=== PATIENT | female | born 2000 | race Two or more races ===

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

== ENCOUNTER 2023-04-05 11:49 | Emergency (ER) | payer BC, MEDICAID ==
[~2023-04-05] VITALS: Ht 157.5 cm; Wt 54.5 kg
[2023-04-05 14:26] LABS: Urine Bacteria FEW /hpf (None Seen); Urine Blood Negative /uL (Negative); Urine Mucus FEW (None Seen); Urine Specific Gravity 1.026 (1.001-1.035); Urine WBC 44 /hpf (0 - 5)
[2023-04-05 15:02] LABS: Alcohol, Urine < 3.0 mg/dL (0-10); Amphetamine Screen, Urine NEGATIVE (NEGATIVE); Barbiturate Scree,Urine NEGATIVE (NEGATIVE); Benzodiazephine Screen, Urine NEGATIVE (NEGATIVE); Cannabinoid Screen, Urine POSITIVE (NEGATIVE); Cocaine Screen, Urine NEGATIVE (NEGATIVE)
[2023-04-05 15:09] LABS: Opiate Scree,Urine NEGATIVE (NEGATIVE); Phencyclidine Screen, Urine NEGATIVE (NEGATIVE)
[2023-04-05 16:24] VITALS: BP 104/55; PULSE 80; RESP 16; TEMP 98; O2SAT 95
[2023-04-05] MEDS ORDERED: CLOTCRE3 EX (16:47)
[2023-04-05] MEDS ORDERED: METR375C PO (16:47)
[2023-04-05] MEDS ORDERED: FLUC150T38 PO (16:47)
[2023-04-05] MEDS ORDERED: NITR-52 PO (16:50)
== END 2023-04-05 16:53 | disposition home or self-care (01) ==
LOC: ER 11:49
DX: N76.0 Acute vaginitis (principal); Z79.899 Other long term (current) drug therapy
CPT/HCPCS: 80307; 81001; 81025

== ENCOUNTER 2023-07-09 10:31 | Emergency (ER) | payer BC, MEDICAID ==
[~2023-07-09] VITALS: Ht 157.5 cm; Wt 52.3 kg
[~2023-07-09 10:31] MED LIST: CLOTCRE3 EX; FLUC150T38 PO; METR375C PO; NITR-52 PO
[2023-07-09 14:12] LABS: Urine Bacteria FEW /hpf (None Seen); Urine Blood Negative /uL (Negative); Urine Clarity HAZY (Clear); Urine Hyphae Yeast PRESENT /hpf; Urine Protein, UAD Negative (Negative); Urine Specific Gravity 1.009 (1.001-1.035); Urine Urobilinogen Normal (Negative); Urine WBC 174 /hpf (0 - 5); Urine pH 6.5 (5.0-8.0)
[2023-07-09 14:20] VITALS: BP 113/64; PULSE 77; RESP 16; TEMP 98.4; O2SAT 98
[2023-07-09 14:22] LABS: Urine Color Yellow (Yellow)
[2023-07-09] MEDS ORDERED: cefTRIAXone SOD 1,000 MG VL IM ONE (15:15)
[2023-07-09] MEDS ORDERED: KETOROLAC TROMETH 30 MG/ML 1ML VIAL IM ONE (15:15)
[2023-07-09] MEDS ORDERED: NITR-87 PO (15:24)
== END 2023-07-09 15:45 | disposition home or self-care (01) ==
LOC: ER 10:31
DX: N39.0 Urinary tract infection, site not specified (principal)
CPT/HCPCS: 81001; 96372; 99284; J0696; J1885

== ENCOUNTER 2024-04-03 21:55 | Emergency (ER) | payer BC, MEDICAID ==
[~2024-04-03] VITALS: Ht 157.5 cm; Wt 49.2 kg
[~2024-04-03 21:55] MED LIST changes: +NITR-87 PO
[2024-04-04] MEDS: MORPHINE SULFATE 4 MG/ML SYR/VIAL IM ONE (00:28)
[2024-04-04] MEDS: ONDANSETRON ODT 4 MG TAB PO ONE (00:29)
[2024-04-04 01:51] VITALS: BP 105/52; PULSE 72; RESP 16; O2SAT 94
== END 2024-04-04 01:18 | disposition home or self-care (01) ==
LOC: ER 21:55
DX: T63.311A Toxic effect of venom of black widow spider, accidental (unintentional), initial encounter (principal); Z79.899 Other long term (current) drug therapy; Y92.89 Other specified places as the place of occurrence of the external cause
CPT/HCPCS: 96372; 99283; J2270; Q0162

== ENCOUNTER 2024-04-30 16:27 | Emergency (ER) | payer MEDICAID ==
[~2024-04-30] VITALS: Ht 157.5 cm; Wt 48.1 kg
[2024-04-30 18:34] LABS: Urine Bacteria MANY /hpf (None Seen); Urine Blood Negative /uL (Negative); Urine Clarity Turbid (Clear); Urine Color Light-Orange (Yellow); Urine Mucus FEW (None Seen); Urine Protein, UAD TRACE (Negative); Urine Specific Gravity 1.021 (1.001-1.035); Urine Urobilinogen Normal (Negative); Urine WBC 5 /hpf (0 - 5); Urine pH 5.5 (5.0-9.0)
[2024-04-30] MEDS ORDERED: IBUP-1456 PO (19:02)
[2024-04-30 19:03] VITALS: BP 97/62; PULSE 89; RESP 16; TEMP 98.2; O2SAT 98
[2024-04-30] MEDS: IBUPROFEN 800 MG TAB PO ONE (19:16)
== END 2024-04-30 20:14 | disposition home or self-care (01) ==
LOC: ER 17:33
DX: S23.41XA Sprain of ribs, initial encounter (principal); Z79.899 Other long term (current) drug therapy; X58.XXXA Exposure to other specified factors, initial encounter; Y93.89 Activity, other specified; Y92.89 Other specified places as the place of occurrence of the external cause; Y99.8 Other external cause status
CPT/HCPCS: 71101; 81001; 81025

== ENCOUNTER 2024-10-16 05:14 | Inpatient (IN) | payer MEDICAID ==
[~2024-10-16] VITALS: Ht 157.5 cm; Wt 58.1 kg
[~2024-10-16 05:14] MED LIST changes: +IBUP-1456 PO
[2024-10-16] MEDS: SODIUM CHLORIDE 0.9% 2,000 ML IV ONE ×2 (05:30→07:45)
--- NOTE | 2024-10-16 05:33 | ED.PDOC ---
GI ASSESSMENT HPI Comments 24 year old female presents to the ED with a chief complaint of nausea/vomiting onset today around 03:00. Patient states she woke up around 03:00, experiencing mid and upper abdominal pain as well as nausea/vomiting. Rates her pain 7/10. Patient denies any PMHx as well as diarrhea, constipation, fever, chills, headache, chest pain, shortness of breath, cough, congestion, dysuria, hematuria. No other symptoms or modifying factors present at this time. Chief Complaint: Abdominal Pain Time Seen by MD: 05:21 Primary Care Provider: DOMINICK Pisano Notes: Medications, Allergies Allergies: Coded Allergies: NO KNOWN ALLERGIES (Unverified , 09/09/14) Home Meds Active Scripts Ibuprofen (Ibuprofen) 800 Mg Tab, 1 TAB PO TID PRN, #30 TAB 0 Refills Prov:MARCELO SOLIS 04/30/24 Nitrofurantoin Monohydrate Mac (Macrobid) 100 Mg Cap, 100 MG PO BID for 5 Days, #10 CAP 0 Refills Prov:AUSTEN ELLISON NP 07/09/23 Nitrofurantoin (Nitrofurantoin) 100 Mg Cap, 1 CAP PO BID for 7 Days, #14 CAP Prov:FLAKITA HUSSEINP 04/05/23 Clotrimazole W/ Betamethasone (Clotrimazole/Betamethason 1-0.05 %) 1 Cre Cre, 1 CRE EX BID for 10 Days, #30 CRE Prov:FLAKITA HUSSEINP 04/05/23 Fluconazole (Diflucan) 150 Mg Tab, 1 TAB PO ONCE, #1 TAB 1 Refill Prov:FLAKITA HUSSEIN 04/05/23 Metronidazole (Flagyl) 375 Mg Cap, 375 MG PO BID for 7 Days, #14 CAP Prov:FLAKITA HUSSEIN [employer] 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 04/05/23 Information Source: Patient Mode of Arrival: Ambulatory Timing: Hours Duration: Since onset Prehospital treatment: None Quality: Aching Severity: Moderate Recent: None Recent Hx of: None Pain Location: Diffuse Modifying Factors: Nothing Associated sign and symptoms: Nausea, Vomiting, Abdominal Pain Past Medical History PAST MEDICAL HISTORY: Denies Surgical History: Denies all surgeries DIE TRIPPER History: No Pertinent DIE TRIPPER History Family History Family History: Unknown Social History Smoker: Non-Smoker Alcohol: Occasionally Drugs: Denies Drug Use Lives In: Home Constitutional: denies: chills, diaphoresis, fatigue, fever, malaise, sweats, weakness, others EENTM: denies: blurred vision, double vision, ear bleeding, ear discharge, ear drainage, ear pain, ear ringing, eye pain, eye redness, hearing loss, mouth pain, mouth swelling, nasal discharge, nose bleeding, nose congestion, nose pain, photophobia, tearing, throat pain, throat swelling, voice changes, others Respiratory: denies: cough, hemoptysis, orthopnea, SOB at rest, shortness of breath, SOB with excertion, stridor, wheezing, others Cardiovascular: denies: chest pain, dizzy spells, diaphoresis, Dyspnea on exertion, edema, irregular heart beat, left arm pain, lightheadedness, palpitations, PND, syncope, others Gastrointestinal: reports: abdominal pain, nausea, vomiting; denies: abdomen distended, blood streaked bowels, constipated, diarrhea, dysphagia, difficulty swallowing, hematemesis, melena, poor appetite, poor fluid intake, rectal bleeding, rectal pain, others Genitourinary: denies: abnormal vagina bleeding, burning, dyspareunia, dysuria, flank pain, frequency, hematuria, incontinence, pain, , vagina discharge, urgency, others Neurological: denies: dizziness, fainting, headache, left sided numbness, left sided weakness, numbness, paresthesia, pre-existing deficit, right sided numbness, right sided weakness, seizure, speech problems, tingling, tremors, weakness, others Musculoskeletal: denies: back pain, gout, joint pain, joint swelling, muscle pain, muscle stiffness, neck pain, others Integumetry: denies: bruises, change in color, change in hair/nails, dryness, laceration, lesions, lumps, rash, wounds, others Allergic/Immunocompromised: denies: Difficulty Healing, Frequent Infections, Hives, Itching, others Hematologic/Lymphatic: denies: anemia, blood clots, easy bleeding, easy bruising, swollen glands, others Endocrine: denies: excessive hunger, excessive sweating, excessive thirst, excessive urination, flushing, intolerance to cold, intolerance to heat, unexplained weight gain, unexplained weight loss, others Psychiatric: denies: anxiety, bipolar disorder, depression, hopeless, panic disorder, schizophrenia, sleepless, suicidal, others All Other Systems: Reviewed and Negative Physical Exam General Appearance: Moderate Distress HEENT: Other (dry mucous membranes) Neck: Full Range of Motion, Normal Inspection Respiratory: Lungs Clear, No Accessory Muscle Use, No Respiratory Distress, Normal Breath Sounds Cardiovascular: No Edema, No JVD, Regular Rate/Rhythm Breast Exam: Deferred Gastrointestinal: Soft, Tenderness, Other (Generalized upper and mid abdominal tenderness to palpation. No rebound or guarding.) Genitalia: Deferred Pelvic: Deferred Rectal: Deferred Extremities: Normal inspection, Normal range of motion, Non-tender, No pedal edema Neurologic: Alert (Oriented x4), Normal Affect, Normal Mood, Other (No gross focal deficit) Cerebellar Function: NOT DONE Reflexes: NOT DONE Skin: Dry, Pallor, Warm Lymphatic: Other Was a procedure done? Was a procedure done?: No GI differential Dx Differential Diagnosis: Appendicitis, Cholecystitis, Diverticular disease, Gastritis/PUD, Gastroenteritis, Inflammatory BD, Ischemic Bowel, Pancreatitis, UTI, Dehydration, Diabetes/ DKA, Electrolyte Imbalance, Food Poisoning, Pr egnancy, Bacterial, Parasitic, Viral, Hypovolemia, Impaction, Stress Ulcer X-Ray, Labs, Meds, VS Vital Signs Date Time Temp Pulse Resp B/P (MAP) Pulse Ox O2 Delivery O2 Flow Rate FiO2 10/16/24 09:15 80 16 103/49 (67) 96 10/16/24 07:45 81 15 97 Room Air* 0 21 10/16/24 07:45 97.6 81 15 93/56 (68) 97 97.6 10/16/24 06:47 82 16 100/62 10/16/24 06:43 110 18 98 Room Air* 0 21 10/16/24 06:43 98.3 110 20 110/70 (83) 96 98.3 10/16/24 06:17 110 20 100/76 10/16/24 05:20 98.3 113 20 97/66 (76) 96 Lab Test 10/16/24 09:00 10/16/24 05:30 Range/Units Urine Color Light-yellow Yellow Urine Clarity Clear Clear Urine pH 5.0 5.0-9.0 Urine Specific [place] 1.019 1.001-1.035 Urine Protein Negative Negative Urine Ketones 1+ H Negative Urine Blood Negative Negative /uL Urine Nitrite Negative Negative Urine Bilirubin Negative Negative Urine Urobilinogen Normal Negative mg/dL Urine Leukocyte Esterase Negative Negative /uL Urine RBC <1 0 - 4 /hpf Urine Microscopic WBC 1 0-5 /HPF Urine Squamous Epithelial Cells Few <5 /hpf Urine Bacteria None seen None Seen /hpf Urine Mucus Few None Seen Urine Glucose Normal Normal mg/dL White Blood Count 18.2 H 4.4-10.8 10^3/uL Red Blood Count 4.82 4.0-5.20 10^6/uL Hemoglobin 14.6 12.2-16.2 g/dL Hematocrit 43.9 36.0-46.0 % Mean Corpuscular Volume 91.1 80.0-100.0 fL Mean Corpuscular Hemoglobin 30.2 28.0-32.0 pg Mean Corpuscular Hemoglobin Concent 33.2 32.0-36.0 g/dL Red Cell Distribution Width 14.3 11.8-14.3 % Platelet Count 367 140-450 10^3/uL Mean Platelet Volume 8.7 6.9-10.8 fL Neutrophils (%) (Auto) 78.8 37.0-80.0 % Lymphocytes (%) (Auto) 12.9 10.0-50.0 % Monocytes (%) (Auto) 7.4 0.0-12.0 % Eosinophils (%) (Auto) 0.7 0.0-7.0 % Basophils (%) (Auto) 0.2 0.0-2.0 % Neutrophils # (Auto) 14.3 H 1.6-8.6 10 ^3/uL Lymphocytes # (Auto) 2.3 0.4-5.4 10 ^3/uL Monocytes # (Auto) 1.3 0-1.3 10 ^3/uL Eosinophils # (Auto) 0.1 0-0.8 10 ^3/uL Basophils # (Auto) 0 0-0.2 10 ^3/uL Nucleated Red Blood Cells 0.0 % Sodium Level 139 136-145 mmol/L Potassium Level 3.3 L 3.5-5.1 mmol/L Chloride Level 106 98-107 mmol/L Carbon Dioxide Level 24 20-31 mmol/L Anion Gap 9 5-15 Blood Urea Nitrogen 11 9-23 mg/dL Creatinine 0.84 0.550-1.02 mg/dL Glomerular Filtration Rate Calc 101 >90 mL/min BUN/Creatinine Ratio 13.1 10.0-20.0 Serum Glucose 114 H 74-106 mg/dL Calcium Level 9.6 8.7-10.4 mg/dL Total Bilirubin 0.4 0.2-1.0 mg/dL Aspartate Amino Transferase (AST) 41 H 13-40 U/L Alanine Aminotransferase (ALT) 49 H 7-40 U/L Alkaline Phosphatase 64 46-116 U/L Total Protein 7.1 5.7-8.2 g/dL Albumin 4.8 3.2-4.8 g/dL Lipase 27 12-53 U/L Beta HCG, Quantitative 0.3 L 1.5-4.2 mIU/mL Current Medications Medications (Trade) Dose Ordered Sig/[place] Route Start Time Stop Time Status Last Admin Sodium Chloride 2,000 ml @ 1,000 mls/hr Q2H ONCE IV 10/16/24 05:30 10/16/24 07:29 DC 10/16/24 05:30 Ondansetron HCl (Zofran) 4 mg ONCE ONCE IV 10/16/24 05:30 10/16/24 05:31 DC 10/16/24 06:17 Morphine Sulfate 4 mg ONCE ONCE IV 10/16/24 05:30 10/16/24 05:31 DC 10/16/24 06:17 Famotidine (Pepcid Injection) 20 mg ONCE ONCE IV 10/16/24 05:30 10/16/24 05:31 DC 10/16/24 06:15 Sodium Chloride 2,000 ml @ 1,000 mls/hr Q2H ONCE IV 10/16/24 07:45 10/16/24 09:44 DC 10/16/24 07:45 X-Ray, Labs, Meds, VS Comment 24-year-old female with no significant past medical history complaining of upper and mid abdominal pain, nausea and vomiting Vitals remarkable for heart rate 113 Exam remarkable for mid and upper abdominal tenderness to palpation. Nontender to percussion. No rebound or guarding. Actively vomiting. Rhythm strip independently interpreted by me: Sinus tach, rate 113, no ectopy. CBC, CMP, lipase, UA, hCG, CT abdomen and pelvis pending Patient treated with the following in the ED: 2 L 0.9 normal saline IV bolus, Zofran 4 mg IV, morphine 4 mg IV, Pepcid 20 mg IV Patient endorsed to the oncoming ED physician at 6:00 a.m. pending results and re-evaluation. Time of 1ST Reevaluation: 05:51 Reevaluation 1ST: Unchanged Patient Education/Counseling: Diagnosis, Treatment, Prognosis Family Education/Counseling: No Family Present Additional Information The following tests were ordered, and results were reviewed by me: CBC, CMP, BETA HCG, LIPASE, UA, CT AB PEL WO CONTRAST I reviewed and agreed with the following test results read by other providers: CT AB PEL WO CONTRAST I discussed treatment and results with medical personnel and: patient Departure 1 Departure Time of Disposition: 05:47 (Patient with a fever and elevated white count and hypotension. Patient received multiple fluid boluses patient is still feeling weak. We will admit patient for further workup.) Impression: Primary Impression: Abdominal pain Qualified Codes: R10.84 - Generalized abdominal pain Additional Impression: Nausea and vomiting Qualified Codes: R11.2 - Nausea with vomiting, unspecified Disposition: ADMITTED INPATIENT Admit to: Med Surg Condition: Serious Critical Care Note Critical Care Time?: No Stability Stability form required: No Heart Score Heart Score: Heart Score Response (Comments) Value History N/A 0 EKG N/A 0 Age N/A 0 Risk Factors N/A 0 Troponin N/A 0 Total 0 I personally scribed for RENATO CHAND MD ([email or web address]) on 10/16/24 at 05:33. Electronically submitted by Rachel Hagan ([email or web address]). I personally scribed for RENATO CHAND MD ([email or web address]) on 10/16/24 at 05:34. Electronically submitted by Rachel Hagan ([email or web address]). RENATO CHAND MD Oct 16, 2024 05:33 RASHEED WELDON MD Oct 16, 2024 10:43
[2024-10-16 06:08] LABS: Basophils # (auto) 0 10 ^3/uL (0-0.2); Basophils % (auto) 0.2 % (0.0-2.0); Eosinophils # (auto) 0.1 10 ^3/uL (0-0.8); Eosinophils % (auto) 0.7 % (0.0-7.0); Hematocrit 43.9 % (36.0-46.0); Hemoglobin 14.6 g/dL (12.2-16.2); Lymphocytes # (auto) 2.3 10 ^3/uL (0.4-5.4); Lymphocytes % (auto) 12.9 % (10.0-50.0); Mean Corpuscular Hemoglobin 30.2 pg (28.0-32.0); Mean Corpuscular Hgb Conc. 33.2 g/dL (32.0-36.0); Mean Corpuscular Volume 91.1 fL (80.0-100.0); Monocytes # (auto) 1.3 10 ^3/uL (0-1.3); Monocytes % (auto) 7.4 % (0.0-12.0); Neutrophils # (auto) 14.3 10 ^3/uL (1.6-8.6); Neutrophils % (auto) 78.8 % (37.0-80.0); Platelet Count (auto) 367 10^3/uL (140-450); Red Blood Cells 4.82 10^6/uL (4.0-5.20); Red Cell Distribution Width 14.3 % (11.8-14.3); White Blood Cell 18.2 10^3/uL (4.4-10.8)
[2024-10-16] MEDS: FAMOTIDINE (10MG/ML) 2ML VL IV ONE ×2 (06:15→12:18)
[2024-10-16] MEDS: MORPHINE SULFATE 4 MG/ML SYR/VIAL IV ONE (06:17)
[2024-10-16] MEDS: ONDANSETRON HCL 4 MG/2 ML VIAL IV ONE (06:17)
[2024-10-16 06:24] LABS: Albumin 4.8 g/dL (3.2-4.8); Alkaline Phosphatase 64 U/L (46-116); Anion Gap 9 (5-15); BUN/Creatinine Ratio 13.1 (10.0-20.0); Bilirubin, Total 0.4 mg/dL (0.2-1.0); Blood Urea Nitrogen 11 mg/dL (9-23); Calcium 9.6 mg/dL (8.7-10.4); Carbon Dioxide 24 mmol/L (20-31); Chloride 106 mmol/L (98-107); Lipase 27 U/L (12-53); Sodium 139 mmol/L (136-145); Total Protein 7.1 g/dL (5.7-8.2)
[2024-10-16 06:27] LABS: Alanine Aminotransferase 49 U/L (7-40); Aspartate Aminotransferase 41 U/L (13-40); Glucose 114 mg/dL (74-106); Potassium 3.3 mmol/L (3.5-5.1)
[2024-10-16 06:43] VITALS: PULSE 110; RESP 18; O2SAT 98
--- NOTE | 2024-10-16 06:58 | DVH ---
Exam: CT CT AB PEL WO CON-NO ORAL OR IV History: Mid upper abd pain, n/v Comparison Study: None available at time of dictation. Technique: Multidetector spiral CT of the abdomen and pelvis was performed from lung bases to pubic s ymphysis. Imaging was performed without intravenous contrast. Coronal and sagittal multiplanar refor mats were obtained from the axial data set by the technologist. Radiation Dose : 1. Abdomen/Pelvis: CTDIvol 5.6 mGy, DLP 287 mGy*cm. Findings: Evaluation of vasculature and solid organs is limited due to lack of intravenous contrast use. Lung Bases: Lung bases are clear. Visualized portions of the heart and pericardium are unremarkable. Liver: The liver is normal in size. No focal lesions. Gallbladder and Biliary Tree: The gallbladder is unremarkable No intrahepatic or extrahepatic bilia ry ductal dilatation. Spleen: Unremarkable Pancreas: The pancreas is grossly unremarkable. Adrenal Glands: Unremarkable Kidneys: Kidneys are unremarkable without calculi or hydronephrosis. GI tract: The stomach is grossly normal in appearance. No evidence of small bowel wall thickening or abnormal dilatation to suggest bowel obstruction. The colon is unremarkable. The appendix is not vi sualized, however no inflammatory changes in the right lower quadrant to suggest acute appendicitis. Peritoneum/mesentery/retroperitoneum. No evidence of free intraperitoneal air. No ascites. No evidenc e of suspicious lymphadenopathy. Abdominal Wall: Unremarkable. Vasculature: The visualized abdominal aorta is normal in size and caliber. Evaluation of abdominal a nd pelvic vessels is limited due to lack of intravenous contrast. Urinary Bladder: Grossly unremarkable for degree of distention. Pelvic Organs: Unremarkable Musculoskeletal: No aggressive focal bony lesions, acute fractures or dislocation. IMPRESSION: 1. No acute abdominal or pelvic findings.
[2024-10-16 07:45] VITALS: PULSE 81; RESP 15; O2SAT 97
[2024-10-16 09:18] LABS: Urine Bacteria None Seen /hpf (None Seen)
[2024-10-16 09:35] LABS: Urine Blood Negative /uL (Negative); Urine Clarity Clear (Clear); Urine Color Light-Yellow (Yellow); Urine Mucus FEW (None Seen); Urine Protein, UAD Negative (Negative); Urine Specific Gravity 1.019 (1.001-1.035); Urine Squamous Epithelial Cell FEW /hpf (<5); Urine Urobilinogen Normal (Negative); Urine WBC 1 /HPF (0-5)
[2024-10-16] MEDS: IOHEXOL 300 MG/ML 100ML BOTTLE IJ ONE (11:04)
--- NOTE | 2024-10-16 11:33 | DVH ---
Exam: CT CT AB PEL WITH IV CON ONLY History: abdominal pain, hypotension TECHNIQUE: A digital brake repairer hydraulic image was obtained. During the uneventful, intravenous administration of c ontrast material, multislice data acquisition was obtained through the abdomen and pelvis. The data s et was subsequently reconstructed into axial images. Images were reviewed on a work station using a c ombination of axial and multiplanar using a variety of window levels and settings. 100 cc of Omnipaqu e 300 contrast was injected intravenously. All CT scans at this medical facility are performed using dose modulation techniques as appropriate t o a performed exam including the following:Automated exposure control was utilized; adjustment of the MA and/or KV according to patient size; and use of iterative reconstruction technique. Radiation Dose Information: CT Dose: CTDI volume is 5 mGy. Dose-length product is 260 mGy*cm Comparison: 10/16/2024 FINDINGS: Theliver, gallbladder, pancreas, kidneys, adrenal glands, and spleen appear within normal limits. There is no evidence of abdominal lymphadenopathy. There is no free fluid or free air. The stomach grossly appears unremarkable. There are mildly dilated fluid-filled small bowel loops in the mid and lower abdomen measuring up to 2.5 cm. There is no obvious transition point. The large bow el loops demonstrate normal caliber and contains stool intermixed with air. The abdominal aorta and IVC appear within normal limits. The bladder appears within normal limits the degree of distention. Pelvic organs is unremarkable. Th ere is no evidence of a pelvic mass or lymphadenopathy. There is no free fluid collection. Lung bases are clear. There is no acute osseous abnormality. IMPRESSION: 1. Mildly dilated fluid-filled small bowel loops in the mid and lower abdomen without obvious transit ion point. Findings May relate to small bowel ileus. Clinical correlation is recommended. HS:Y
[2024-10-16] MEDS: CEFEPIME 2GM/50ML NS 50 ML IV ONE (11:42)
[2024-10-16] MEDS: SODIUM CHLORIDE 0.9% 1,000 ML IV ONE (11:42)
[2024-10-16] MEDS: diphenhdrAMINE HCL 50 MG/1 ML VL IV ONE (12:17)
--- NOTE | 2024-10-16 12:35 | DVHHP2 ---
History of Present Illness Reason for Visit: Abdominal pain History of Present Illness Tiki Betancur is a 24-year-old female with no significant past medical history who came in for abdominal pain. Patient states she was awoken about 0500 due to the abdominal pain, and at that time she vomited up her dinner from the previous night. Since this morning patient has not had anything to eat and has only tried drinking some water. She has had diarrhea x 2, and continues to vomit water or bile. Mother stated to ER staff that the patient has mild autism. Mother or father has been staying with patient and assisting with history. Past Surgical History: None Family History: None Smoke: No ALCOHOL: rare Drugs: Marijuana Lives: with Family Domestic Violence: Neg Review of Systems Constitutional: No: Fever, Chills, Sweats, Weakness, Malaise, Other Eyes: No: Pain, Vision change, Conjunctivae inflammation, Eyelid inflammation, Other, Redness ENT: No: Ear pain, Ear discharge, Nose pain, Nose discharge, Nose congestion, Mouth pain, Mouth swelling, Throat pain, Throat swelling, Other Respiratory: No: Cough, Dry, Shortness of breath, SOB with excertion, Wheezing, Hemoptysis, Pleuritic Pain, Sputum, Wheezing, Other Cardiovascular: No: Chest Pain, Palpitations, Orthopnea, Paroxysmal Noc. Dyspnea, Edema, Lt Headedness, Other Gastrointestinal: Nausea, Vomiting, Abdominal Pain, Diarrhea; No: Constipation, Melena, Hematochezia, Other Genitourinary: No Dysuria, No Frequency, No Incontinence, No Hematuria, No Retention, No Other Musculoskeletal: No: other, neck pain, shoulder pain, arm pain, back pain, hand pain, leg pain, foot pain Skin: No: Rash, Lesions, Jaundice, Bruising, Other Neurological: No: Weakness, Numbness, Incoordination, Change in speech, Confusion, Seizures, Other Allergies: Coded Allergies: Cefepime (Verified Allergy, Unknown, 10/16/24) REDNESS/RASH TO FACE AND ARMS Exam Vital Signs Vital Signs Date Time Temp Pulse Resp B/P (MAP) Pulse Ox O2 Delivery O2 Flow Rate FiO2 10/16/24 10:47 98.3 85 17 88/46 (60) 97 98.3 10/16/24 07:45 Room Air* 0 21 General Appearance: Alert, Oriented X3, Cooperative, moderate distress HEENT: Atraumatic, PERRLA, Mucous membr. moist/pink Respiratory: Clear to auscultation, Normal air movement Cardiovascular: Regular rate, Normal S1, Normal S2 Abdominal: Normal bowel sounds, Other (abdomen tender on palpitation, and mildly distended) Extremities: No clubbing, No cyanosis, No edema, Normal pulses Skin: No rashes, No breakdown, No significant lesion Neuro: Normal gait, Normal speech, Strength at 5/5 X4 ext, Normal tone Psych/Mental Status: Mental status NL, Mood NL Labs/Xrays Labs Test 10/16/24 10:56 10/16/24 09:00 10/16/24 05:30 Range/Units Urine Color Light-yellow Yellow Urine Clarity Clear Clear Urine pH 5.0 5.0-9.0 Urine Specific [place] 1.019 1.001-1.035 Urine Protein Negative Negative Urine Ketones 1+ H Negative Urine Blood Negative Negative /uL Urine Nitrite Negative Negative Urine Bilirubin Negative Negative Urine Urobilinogen Normal Negative mg/dL Urine Leukocyte Esterase Negative Negative /uL Urine RBC <1 0 - 4 /hpf Urine Microscopic WBC 1 0-5 /HPF Urine Squamous Epithelial Cells Few <5 /hpf Urine Bacteria None seen None Seen /hpf Urine Mucus Few None Seen Urine Glucose Normal Normal mg/dL White Blood Count 18.2 H 4.4-10.8 10^3/uL Red Blood Count 4.82 4.0-5.20 10^6/uL Hemoglobin 14.6 12.2-16.2 g/dL Hematocrit 43.9 36.0-46.0 % Mean Corpuscular Volume 91.1 80.0-100.0 fL Mean Corpuscular Hemoglobin 30.2 28.0-32.0 pg Mean Corpuscular Hemoglobin Concent 33.2 32.0-36.0 g/dL Red Cell Distribution Width 14.3 11.8-14.3 % Platelet Count 367 140-450 10^3/uL Mean Platelet Volume 8.7 6.9-10.8 fL Neutrophils (%) (Auto) 78.8 37.0-80.0 % Lymphocytes (%) (Auto) 12.9 10.0-50.0 % Monocytes (%) (Auto) 7.4 0.0-12.0 % Eosinophils (%) (Auto) 0.7 0.0-7.0 % Basophils (%) (Auto) 0.2 0.0-2.0 % Neutrophils # (Auto) 14.3 H 1.6-8.6 10 ^3/uL Lymphocytes # (Auto) 2.3 0.4-5.4 10 ^3/uL Monocytes # (Auto) 1.3 0-1.3 10 ^3/uL Eosinophils # (Auto) 0.1 0-0.8 10 ^3/uL Basophils # (Auto) 0 0-0.2 10 ^3/uL Nucleated Red Blood Cells 0.0 % Sodium Level 139 136-145 mmol/L Potassium Level 3.3 L 3.5-5.1 mmol/L Chloride Level 106 98-107 mmol/L Carbon Dioxide Level 24 20-31 mmol/L Anion Gap 9 5-15 Blood Urea Nitrogen 11 9-23 mg/dL Creatinine 0.84 0.550-1.02 mg/dL Glomerular Filtration Rate Calc 101 >90 mL/min BUN/Creatinine Ratio 13.1 10.0-20.0 Serum Glucose 114 H 74-106 mg/dL Calcium Level 9.6 8.7-10.4 mg/dL Total Bilirubin 0.4 0.2-1.0 mg/dL Aspartate Amino Transferase (AST) 41 H 13-40 U/L Alanine Aminotransferase (ALT) 49 H 7-40 U/L Alkaline Phosphatase 64 46-116 U/L Total Protein 7.1 5.7-8.2 g/dL Albumin 4.8 3.2-4.8 g/dL Lipase 27 12-53 U/L Beta HCG, Quantitative 0.3 L 1.5-4.2 mIU/mL Exam: CT CT AB PEL WITH IV CON ONLY FINDINGS: The liver, gallbladder, pancreas, kidneys, adrenal glands, and spleen appear within normal limits. There is no evidence of abdominal lymphadenopathy. There is no free fluid or free air. The stomach grossly appears unremarkable. There are mildly dilated fluid-filled small bowel loops in the mid and lower abdomen measuring up to 2.5 cm. There is no obvious transition point. The large bowel loops demonstrate normal caliber and contains stool intermixed with air. The abdominal aorta and IVC appear within normal limits. The bladder appears within normal limits the degree of distention. Pelvic organs is unremarkable. There is no evidence of a pelvic mass or lymphadenopathy. There is no free fluid collection. Lung bases are clear. There is no acute osseous abnormality. IMPRESSION: 1. Mildly dilated fluid-filled small bowel loops in the mid and lower abdomen without obvious transition point. Findings May relate to small bowel ileus. Clinical correlation is recommended. Assessment/Plan Assessment/Plan Assessment: Ileus, Intractable nausea and vomiting, Hypokalemia, Plan: Admit to Med-Surg, GI consult, NPO except ice chips, IV hydration, IV antibiotics, Possible NG tube if nausea/vomiting persist, Plan discussed with: Patient, Other (Father) My Orders Orders - CORNELIUS CARREON Procedure Category Date Status Time Admit ADMIT 10/16/24 Transmitted 12:13 Code Status CODE 10/16/24 Transmitted 12:13 0.9% Ns 1000 Ml PHA 10/16/24 Transmitted 12:15 Ondansetron Hcl PHA 10/16/24 Transmitted (Zofran) 12:15 Complete Blood Count LAB 10/17/24 Verified 04:00 Comprehensive LAB 10/17/24 Verified Metabolic Panel 04:00 Npo (Nothing By DIET 10/16/24 Transmitted Mouth) Diet Lunch Condition: Serious CARLEY 10/16/24 Transmitted 12:13 Morphine Sulfate PHA 10/16/24 Transmitted Injection 12:15 Date of Service: Oct 16, 2024 Billing Provider: CORNELIUS CARREON Common Visit Codes: [id number] INP/OBS CARE (MOD) CORNELIUS CARREON Oct 16, 2024 12:35
[2024-10-16] MEDS: cefTRIAXone 1GM/50ML D5W 50 ML IV ONE (12:38)
--- NOTE | 2024-10-16 13:38 | DVHINCON2 ---
GI Consult Consult Note GI consult note Date of Consultation: 10/16/2024 Chief Complaint: Ileus Referring Physician: Keith PEDROZA H&P: 24-year-old female presented to ER with abdominal pain started this morning Patient has nausea and vomiting. 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 in chart Past Medical History: None Past Surgical History: Denies Social History: Smoke: No ALCOHOL: rare Drugs: Marijuana Lives: with Family Family History: Noncontributory Review of Systems: Constitutional: no fever, chill, weight loss HEENT: no eye pain, no hearing loss, no oral lesion, no scleral icterus Heart: no chest pain, no chest pressure Lung: no cough, no dyspnea with exertion Abdomen: see HPI Physical exam: General: NAD, AAOX3 Chest: lung ziegler clear to auscultation Heart: RRR, no murmur Abdomen: non-distended, [id number] tenderness to palpation, + BS Labs: Labs Test 10/16/24 10:56 10/16/24 09:00 10/16/24 05:30 Range/Units Lactic Acid Level 1.2 0.4-2.0 mmol/L Urine Color Light-yellow Yellow Urine Clarity Clear Clear Urine pH 5.0 5.0-9.0 Urine Specific [place] 1.019 1.001-1.035 Urine Protein Negative Negative Urine Ketones 1+ H Negative Urine Blood Negative Negative /uL Urine Nitrite Negative Negative Urine Bilirubin Negative Negative Urine Urobilinogen Normal Negative mg/dL Urine Leukocyte Esterase Negative Negative /uL Urine RBC <1 0 - 4 /hpf Urine Microscopic WBC 1 0-5 /HPF Urine Squamous Epithelial Cells Few <5 /hpf Urine Bacteria None seen None Seen /hpf Urine Mucus Few None Seen Urine Glucose Normal Normal mg/dL White Blood Count 18.2 H 4.4-10.8 10^3/uL Red Blood Count 4.82 4.0-5.20 10^6/uL Hemoglobin 14.6 12.2-16.2 g/dL Hematocrit 43.9 36.0-46.0 % Mean Corpuscular Volume 91.1 80.0-100.0 fL Mean Corpuscular Hemoglobin 30.2 28.0-32.0 pg Mean Corpuscular Hemoglobin Concent 33.2 32.0-36.0 g/dL Red Cell Distribution Width 14.3 11.8-14.3 % Platelet Count 367 140-450 10^3/uL Mean Platelet Volume 8.7 6.9-10.8 fL Neutrophils (%) (Auto) 78.8 37.0-80.0 % Lymphocytes (%) (Auto) 12.9 10.0-50.0 % Monocytes (%) (Auto) 7.4 0.0-12.0 % Eosinophils (%) (Auto) 0.7 0.0-7.0 % Basophils (%) (Auto) 0.2 0.0-2.0 % Neutrophils # (Auto) 14.3 H 1.6-8.6 10 ^3/uL Lymphocytes # (Auto) 2.3 0.4-5.4 10 ^3/uL Monocytes # (Auto) 1.3 0-1.3 10 ^3/uL Eosinophils # (Auto) 0.1 0-0.8 10 ^3/uL Basophils # (Auto) 0 0-0.2 10 ^3/uL Nucleated Red Blood Cells 0.0 % Sodium Level 139 136-145 mmol/L Potassium Level 3.3 L 3.5-5.1 mmol/L Chloride Level 106 98-107 mmol/L Carbon Dioxide Level 24 20-31 mmol/L Anion Gap 9 5-15 Blood Urea Nitrogen 11 9-23 mg/dL Creatinine 0.84 0.550-1.02 mg/dL Glomerular Filtration Rate Calc 101 >90 mL/min BUN/Creatinine Ratio 13.1 10.0-20.0 Serum Glucose 114 H 74-106 mg/dL Calcium Level 9.6 8.7-10.4 mg/dL Total Bilirubin 0.4 0.2-1.0 mg/dL Aspartate Amino Transferase (AST) 41 H 13-40 U/L Alanine Aminotransferase (ALT) 49 H 7-40 U/L Alkaline Phosphatase 64 46-116 U/L Total Protein 7.1 5.7-8.2 g/dL Albumin 4.8 3.2-4.8 g/dL Lipase 27 12-53 U/L Beta HCG, Quantitative 0.3 L 1.5-4.2 mIU/mL Imaging: CT abdomen pelvis without contrast IMPRESSION: 1. No acute abdominal or pelvic findings. CT abdomen pelvis with IV contrast IMPRESSION: 1. Mildly dilated fluid-filled small bowel loops in the mid and lower abdomen without obvious transition point. Findings May relate to small bowel ileus. Clinical correlation is recommended. Assessment: Ileus Abdominal pain Plan: Discussed with Dr. Gross Small-bowel series with Gastrografin NPO Possible NG-tube recommended if nausea vomiting persist Monitor labs We will continue to monitor the patient Thank you for the consult Plan discussed with patient, father and RN Date of Service: Oct 16, 2024 Billing Provider: BAUDILIO ART Common Visit Codes: CONSULT ONLY Consultation Codes: [id number] CONSULT <45MIN BAUDILIO ART Oct 16, 2024 13:38
[2024-10-16] MEDS: SODIUM CHLORIDE 0.9% 1,000 ML IV SCH (14:04)
[2024-10-16] MEDS ORDERED: GASTROGRAFIN 120 ML SOL ONE (14:25)
[2024-10-16] MEDS ORDERED: GASTROGRAFIN 30 ML SOL ONE (14:26)
[2024-10-16 15:55] VITALS: BP 104/59; PULSE 73; RESP 15; TEMP 98.4; O2SAT 98
[2024-10-16] MEDS: metroNIDAZOLE 500MG/100ML 100 ML IV SCH (16:13)
[2024-10-16 17:00] VITALS: BP 104/59; PULSE 73; RESP 15; TEMP 98.4; O2SAT 98
[2024-10-16] MEDS: ONDANSETRON HCL 4 MG/2 ML VIAL IV PRN (17:01)
--- NOTE | 2024-10-16 18:41 | DVH ---
XY SMALL BOWEL SERIES-W GASTROGRA 10/16/2024 02:38 PM Clinical History: abd pain Comparison Study: None available at time of dictation. Technique: Single contrast small bowel series performed. Findings: Initial mall manager view of the abdomen and pelvis appears demonstrates no acute process. Contrast is identified within the colon by 2.5 hours. This represents a normal small bowel transit t garirson. Small bowel loops are normal in size. Normal mucosal pattern. No evidence of small bowel obstructi on, stricture, or mucosal abnormality. The terminal ileum is well visualized and is unremarkable. IMPRESSION: 1. Normal small bowel series.
[2024-10-17] VITALS (12 sets, daily range): BP systolic 86–130; BP diastolic 30–86; PULSE 56–76; RESP 16–20; TEMP 97.9–98.7; O2SAT 95–99
[2024-10-17] MEDS: METOCLOPRAMIDE HCL 5MG/ml INJ 2ml VIAL IV PRN (00:46)
[2024-10-17 07:27] LABS: Basophils # (auto) 0 10 ^3/uL (0-0.2); Basophils % (auto) 0.5 % (0.0-2.0); Eosinophils # (auto) 0.1 10 ^3/uL (0-0.8); Eosinophils % (auto) 1.4 % (0.0-7.0); Hematocrit 33.2 % (36.0-46.0); Hemoglobin 11.5 g/dL (12.2-16.2); Lymphocytes % (auto) 14.6 % (10.0-50.0); Mean Corpuscular Hemoglobin 31.5 pg (28.0-32.0); Mean Corpuscular Hgb Conc. 34.8 g/dL (32.0-36.0); Mean Corpuscular Volume 90.5 fL (80.0-100.0); Monocytes # (auto) 0.9 10 ^3/uL (0-1.3); Monocytes % (auto) 13.3 % (0.0-12.0); Neutrophils # (auto) 4.7 10 ^3/uL (1.6-8.6); Neutrophils % (auto) 70.2 % (37.0-80.0); Nucleated Red Blood Cells % 0.1 %; Platelet Count (auto) 222 10^3/uL (140-450); Red Blood Cells 3.66 10^6/uL (4.0-5.20); Red Cell Distribution Width 13.7 % (11.8-14.3); White Blood Cell 6.8 10^3/uL (4.4-10.8)
[2024-10-17 07:55] LABS: Alanine Aminotransferase 30 U/L (7-40); Alkaline Phosphatase 37 U/L (46-116); Anion Gap 9 (5-15); BUN/Creatinine Ratio 11.9 (10.0-20.0); Blood Urea Nitrogen 7 mg/dL (9-23); Calcium 8.7 mg/dL (8.7-10.4); Carbon Dioxide 21 mmol/L (20-31); Chloride 111 mmol/L (98-107); Glucose 103 mg/dL (74-106); Sodium 141 mmol/L (136-145)
[2024-10-17 07:56] LABS: Albumin 3.7 g/dL (3.2-4.8); Aspartate Aminotransferase 20 U/L (13-40); Total Protein 5.3 g/dL (5.7-8.2)
[2024-10-17 08:09] LABS: Bilirubin, Total 0.6 mg/dL (0.2-1.0)
[2024-10-17 10:32] LABS: Hepatitis B Surface Antigen Negative (Negative); Hepatitis C Antibody Negative (Negative)
[2024-10-17] MEDS ORDERED: DIPHENOXYLATE W/ATROPINE 2.5 MG TAB PO PRN (11:30)
--- NOTE | 2024-10-17 12:09 | DVHPNRES ---
Progress Note Date Seen: Oct 17, 2024 Resident Creating Document: CLARI FISHER RESIDENT Medical Necessity Reason Pt with a Central, PICC or Fol: No Subjective Review of Systems Patient seen and examined at bedside. Patient denied a bowel movement, continue to have mild abdominal pain. Initially before coming to the hospital patient had diarrhea then no bowel movements and against started on bowel movements after Gastrografin. No any other new complaints. Objective vital signs Vital Sign Date Time Temp Pulse Resp B/P (MAP) Pulse Ox O2 Delivery O2 Flow Rate FiO2 10/17/24 10:41 60 98/47 (64) 10/17/24 09:00 98.3 18 99 98.3 10/17/24 00:03 Room Air* 0 21 Total Intake and Output 10/16/24 10/16/24 10/17/24 15:00 23:00 07:00 Intake Total 3000 ml 300 ml 100 ml Output Total 2 ml 0 ml Balance 3000 ml 298 ml 100 ml medications Current Medications Medications Dose Ordered Sig/Mamta Route Start Time Stop Time Status Last Admin Dose Admin Sodium Chloride 1,000 ml @ 100 mls/hr Q10H IV 10/16/24 12:15 10/17/24 07:01 100 MLS/HR Ondansetron HCl 4 mg Q4HP PRN IV 10/16/24 12:15 10/17/24 10:31 4 MG Morphine Sulfate 2 mg Q4HPRN PRN IV 10/16/24 12:15 Metronidazole 100 ml @ 100 mls/hr Q8HR IV 10/16/24 14:00 10/17/24 05:05 100 MLS/HR Metoclopramide HCl 10 mg Q6HPRN PRN IV 10/16/24 18:00 10/17/24 07:11 10 MG Diphenoxylate HCl/ Atropine 2.5 mg DAILYP PRN PO 10/17/24 11:30 Examination General Appearance: Cooperative. Well developed. Well nourished. NAD Head Exam: Normal inspection Neck Exam: Normal inspection. Non-tender. Normal alignment Pulmonary/Respiratory: Chest non-tender. Clear bilateral breath sounds Cardiovascular/Chest: Regular rate and rhythm. No murmurs. No JVD. Peripheral Pulses: 2+ Radial (R). 2+ Radial (L). 2+ Pedal (R). 2+ Pedal (L) Abdominal Exam: Normal bowel sounds. Soft. Nontender. No hepatospenomegaly. No masses Ankle Exam: Negative ankle edema Lower extremities: Negative lower extremity edema Neuro/Mental Status: A&O x4. Coherent Thoughts/Psych: Normal thought pattern. Appropriate mood and affect. Good judgement and insight Appearance: In no acute distress Skin Exam: Normal inspection. Normal color. Warm. Dry laboratory and microbiology Laboratory Tests 10/17/24 06:33 Test 10/17/24 06:33 Range/Units Serum Glucose 103 74-106 mg/dL Microbiology Date/Time Source Procedure Growth Status 10/16/24 10:56 Blood Blood Culture - Preliminary NO GROWTH AFTER 24 HOURS OF INCUBATION. Resulted Problem List/Assessment/Plan Problem List/Assessment/Plan Abdominal pain likely due to acute gastroenteritis viral/bacterial versus irritable bowel syndrome-diarrhea Ruled out SBO Plan/recommendation Dr Gross Given initially patient had diarrhea before coming to the hospital, after Gastrografin patient had bowel movement and continued to have watery diarrhea. Pending stool study. Likely these symptoms related to acute gastritis versus irritable bowel disease. -SBO ruled out. Small bowel series normal. -continue IV antibiotic metronidazole. Pending stool study WBC, bacterial culture, stool ova and parasite. -reviewed CT abdomen pelvis:Mildly dilated fluid-filled small bowel loops in the mid and lower abdomen without obvious transition point -follow up in GI outpatient setting for further evaluation. -no active GI intervention needed at this point. Plan discussed with: Patient, Other (RN) My Orders My Orders Orders - CLARI FISHER Procedure Category Date Status Time Diphenoxylate/Atropine PHA 10/17/24 In Process Tablet (Lomotil T 11:30 Stool Bacterial ISABELLA 10/17/24 Logged Culture 11:21 Stool Wbc LAB 10/17/24 Logged 11:21 Ova & Parasite Exam ISABELLA 10/17/24 Logged 11:21 CLARI FISHER Oct 17, 2024 12:09
--- NOTE | 2024-10-17 12:12 | DVHPN2 ---
Subjective 24-year-old female who was admitted for nausea and vomiting and diarrhea and abdominal pain Evaluation showed possible ileus however a small bowel series was just done was negative and she is having bowel movements now Changes from previous H/P or p: Changes Eyes: No Pain, No Vision change, No Conjunctivae inflammation, No Eyelid inflammation, No Other, No Redness ENT: No Ear pain, No Ear discharge, No Nose pain, No Nose discharge, No Nose congestion, No Mouth pain, No Mouth swelling, No Throat pain, No Throat swelling, No Other Cardiovascular: No Chest Pain, No Palpitations, No Orthopnea, No Paroxysmal Noc. Dyspnea, No Edema, No Lt Headedness, No Other Respiratory: No Cough, No Dry, No Shortness of breath, No SOB with excertion, No Wheezing, No Hemoptysis, No Pleuritic Pain, No Sputum, No Other Gastrointestinal: Nausea, Vomiting, Abdominal Pain, Diarrhea; No Constipation, No Melena, No Hematochezia, No Other Genitourinary: No Dysuria, No Frequency, No Incontinence, No Hematuria, No Retention, No Other Musculoskeletal: No other, No neck pain, No shoulder pain, No arm pain, No back pain, No hand pain, No leg pain, No foot pain Skin: No Rash, No Lesions, No Jaundice, No Bruising, No Other Objective Vitals Vital Signs Date Time Temp Pulse Resp B/P (MAP) Pulse Ox O2 Delivery O2 Flow Rate FiO2 10/17/24 10:41 60 98/47 (64) 10/17/24 09:00 98.3 18 99 98.3 10/17/24 00:03 Room Air* 0 21 Intake/Output Intake and Output 10/17/24 07:00 Intake Total 3400 ml Output Total 2 ml Balance 3398 ml Intake Oral 0 ml IV Total 3400 ml Output Urine Total 2 ml # Bowel Movements 1 General Appearance: Alert, Oriented X3, Cooperative, No acute distress Lungs: Clear to auscultation, Normal air movement Cardiovascular: Regular rate, Normal S1, Normal S2 Abdomen: Normal bowel sounds, Soft, No tenderness Extremities: No edema Medications Current Medications Medications Dose Ordered Sig/Mamta Route Start Time Stop Time Status Last Admin Dose Admin Sodium Chloride 1,000 ml @ 100 mls/hr Q10H IV 10/16/24 12:15 10/17/24 07:01 100 MLS/HR Ondansetron HCl 4 mg Q4HP PRN IV 10/16/24 12:15 10/17/24 10:31 4 MG Morphine Sulfate 2 mg Q4HPRN PRN IV 10/16/24 12:15 Metronidazole 100 ml @ 100 mls/hr Q8HR IV 10/16/24 14:00 10/17/24 05:05 100 MLS/HR Metoclopramide HCl 10 mg Q6HPRN PRN IV 10/16/24 18:00 10/17/24 07:11 10 MG Diphenoxylate HCl/ Atropine 2.5 mg DAILYP PRN PO 10/17/24 11:30 Laboratory Results Laboratory Tests 10/17/24 06:33 Chemistry Test 10/17/24 06:33 Albumin 3.7 g/dL (3.2-4.8) Calcium Level 8.7 mg/dL (8.7-10.4) Total Protein 5.3 g/dL (5.7-8.2) L LFT Test 10/17/24 06:33 Alanine Aminotransferase (ALT) 30 U/L (7-40) Alkaline Phosphatase 37 U/L (46-116) L Aspartate Amino Transferase (AST) 20 U/L (13-40) Total Bilirubin 0.6 mg/dL (0.2-1.0) Urinalysis Test 10/16/24 09:00 Urine Color Light-yellow (Yellow) Urine Clarity Clear (Clear) Urine pH 5.0 (5.0-9.0) Urine Specific [place] 1.019 (1.001-1.035) Urine Protein Negative (Negative) Urine Ketones 1+ (Negative) H Urine Blood Negative /uL (Negative) Urine Nitrite Negative (Negative) Urine Bilirubin Negative (Negative) Urine Urobilinogen Normal mg/dL (Negative) Urine Leukocyte Esterase Negative /uL (Negative) Urine RBC <1 /hpf (0 - 4) Urine Microscopic WBC 1 /HPF (0-5) Urine Squamous Epithelial Cells Few /hpf (<5) Urine Bacteria None seen /hpf (None Seen) Urine Mucus Few (None Seen) Urine Glucose Normal mg/dL (Normal) Microbiology Microbiology Date/Time Source Procedure Growth Status 10/16/24 10:56 Blood Blood Culture - Preliminary NO GROWTH AFTER 24 HOURS OF INCUBATION. Resulted Assessment/Plan Assessment/Plan Acute gastroenteritis Hypokalemia No ileus Abdominal pain Plan Start diet full liquids then soft diet as tolerated Replace potassium IV fluids No need her IV antibiotics Full code Advance directives discussed for 15 minutes Plan discussed with: Patient My Orders Orders - CHRIS ELDER MD Procedure Category Date Status Time Full Liq Diet DIET 10/17/24 Transmitted Lunch Date of Service: Oct 17, 2024 Billing Provider: CHRIS ELDER MD Common Visit Codes: [id number] INP/OBS CARE(HIGH) Secondary Visit Codes: [id number] CARE PLAN 30 MINUTES CHRIS ELDER MD Oct 17, 2024 12:12
[2024-10-17] MEDS: DIPHENOXYLATE W/ATROPINE 2.5 MG TAB PO ONE (12:36)
[2024-10-17] MEDS: POTASSIUM CHL 20MEQ/100ML 100 ML IV ONE (12:36)
[2024-10-17] MEDS: MORPHINE SULFATE INJ 2 MG/ml SYRG IV PRN (17:10)
[2024-10-18] VITALS (9 sets, daily range): BP systolic 97–128; BP diastolic 39–80; PULSE 54–70; RESP 18–20; TEMP 98–98.4; O2SAT 94–99
[2024-10-18 07:20] LABS: Alanine Aminotransferase 31 U/L (7-40); Albumin 3.8 g/dL (3.2-4.8); Anion Gap 10 (5-15); Aspartate Aminotransferase 19 U/L (13-40); Bilirubin, Total 0.4 mg/dL (0.2-1.0); Calcium 8.9 mg/dL (8.7-10.4); Carbon Dioxide 20 mmol/L (20-31); Glucose 84 mg/dL (74-106); Magnesium 1.8 mg/dL (1.6-2.6); Sodium 140 mmol/L (136-145)
[2024-10-18 07:21] LABS: Alkaline Phosphatase 37 U/L (46-116); BUN/Creatinine Ratio 9.1 (10.0-20.0); Blood Urea Nitrogen < 5 mg/dL (9-23); Chloride 110 mmol/L (98-107); Potassium 3.1 mmol/L (3.5-5.1); Total Protein 5.5 g/dL (5.7-8.2)
[2024-10-18 07:31] LABS: CRP High Sensitivity 1.34 mg/dL (<1.0)
[2024-10-18] MEDS: POTASSIUM CHL 20 Meq TABLET PO ONE (10:43)
--- NOTE | 2024-10-18 12:14 | DVHPN2 ---
Subjective She says she is still having diarrhea Potassium is 3.1 Changes from previous H/P or p: Changes Eyes: No Pain, No Vision change, No Conjunctivae inflammation, No Eyelid inflammation, No Other, No Redness ENT: No Ear pain, No Ear discharge, No Nose pain, No Nose discharge, No Nose congestion, No Mouth pain, No Mouth swelling, No Throat pain, No Throat swelling, No Other Cardiovascular: No Chest Pain, No Palpitations, No Orthopnea, No Paroxysmal Noc. Dyspnea, No Edema, No Lt Headedness, No Other Respiratory: No Cough, No Dry, No Shortness of breath, No SOB with excertion, No Wheezing, No Hemoptysis, No Pleuritic Pain, No Sputum, No Other Gastrointestinal: Nausea, Vomiting, Abdominal Pain, Diarrhea Genitourinary: No Dysuria, No Frequency, No Incontinence, No Hematuria, No Retention, No Other Musculoskeletal: No other, No neck pain, No shoulder pain, No arm pain, No back pain, No hand pain, No leg pain, No foot pain Skin: No Rash, No Lesions, No Jaundice, No Bruising, No Other Objective Vitals Vital Signs Date Time Temp Pulse Resp B/P (MAP) Pulse Ox O2 Delivery O2 Flow Rate FiO2 10/18/24 09:00 98.0 66 18 98/39 (58) 98 98.0 10/18/24 08:20 Room Air* 0 21 Intake/Output Intake and Output 10/18/24 07:00 Intake Total 1450 ml Balance 1450 ml Intake Oral 1350 ml IV Total 100 ml # Voids 7 # Bowel Movements 4 General Appearance: Alert, Oriented X3, Cooperative, No acute distress Lungs: Clear to auscultation, Normal air movement Cardiovascular: Regular rate, Normal S1, Normal S2 Abdomen: Normal bowel sounds, Soft, No tenderness Extremities: No edema Medications Current Medications Medications Dose Ordered Sig/Mamta Route Start Time Stop Time Status Last Admin Dose Admin Sodium Chloride 1,000 ml @ 100 mls/hr Q10H IV 10/16/24 12:15 10/18/24 02:16 100 MLS/HR Ondansetron HCl 4 mg Q4HP PRN IV 10/16/24 12:15 10/18/24 07:57 4 MG Morphine Sulfate 2 mg Q4HPRN PRN IV 10/16/24 12:15 10/17/24 17:10 2 MG Laboratory Results Laboratory Tests 10/17/24 06:33 10/18/24 04:49 Chemistry Test 10/18/24 04:49 Albumin 3.8 g/dL (3.2-4.8) Calcium Level 8.9 mg/dL (8.7-10.4) Magnesium Level 1.8 mg/dL (1.6-2.6) Total Protein 5.5 g/dL (5.7-8.2) L LFT Test 10/18/24 04:49 Alanine Aminotransferase (ALT) 31 U/L (7-40) Alkaline Phosphatase 37 U/L (46-116) L Aspartate Amino Transferase (AST) 19 U/L (13-40) Total Bilirubin 0.4 mg/dL (0.2-1.0) Urinalysis Test 10/16/24 09:00 Urine Color Light-yellow (Yellow) Urine Clarity Clear (Clear) Urine pH 5.0 (5.0-9.0) Urine Specific [place] 1.019 (1.001-1.035) Urine Protein Negative (Negative) Urine Ketones 1+ (Negative) H Urine Blood Negative /uL (Negative) Urine Nitrite Negative (Negative) Urine Bilirubin Negative (Negative) Urine Urobilinogen Normal mg/dL (Negative) Urine Leukocyte Esterase Negative /uL (Negative) Urine RBC <1 /hpf (0 - 4) Urine Microscopic WBC 1 /HPF (0-5) Urine Squamous Epithelial Cells Few /hpf (<5) Urine Bacteria None seen /hpf (None Seen) Urine Mucus Few (None Seen) Urine Glucose Normal mg/dL (Normal) Microbiology Microbiology Date/Time Source Procedure Growth Status 10/17/24 12:40 Stool Stool Culture - Preliminary Resulted 10/17/24 12:40 Stool Shiga Toxin I & II - Final Resulted 10/16/24 10:56 Blood Blood Culture - Preliminary NO GROWTH AFTER 48 HOURS OF INCUBATION. Resulted Assessment/Plan Assessment/Plan Acute gastroenteritis Hypokalemia No ileus Abdominal pain Plan Start diet full liquids then soft diet as tolerated Replace potassium IV fluids No need her IV antibiotics Full code Advance directives discussed for 15 minutes 10/18/2024: Replace potassium Continue soft mechanical diet Advance diet as tolerated Continue IV fluids Plan discussed with: Patient Date of Service: Oct 18, 2024 Billing Provider: CHRIS ELDER MD Common Visit Codes: [id number] INP/OBS CARE(HIGH) CHRIS ELDER MD Oct 18, 2024 12:14
--- NOTE | 2024-10-18 17:31 | DVHPN2 ---
Progress Note Date Seen: Oct 18, 2024 Resident Creating Document: CLARI FISHER RESIDENT Medical Necessity Reason Pt with a Central, PICC or Fol: No Subjective Review of Systems Patient seen and examined at bedside. Patient is frequency of bowel movement significantly reduced, consistent new change from watery to semi-solid. No nausea and vomiting last 48 hours. No any other new complaints. Objective vital signs Vital Sign Date Time Temp Pulse Resp B/P (MAP) Pulse Ox O2 Delivery O2 Flow Rate FiO2 10/18/24 16:52 98.1 64 20 102/59 (73) 99 98.1 10/18/24 08:20 Room Air* 0 21 Total Intake and Output 10/17/24 10/17/24 10/18/24 15:00 23:00 07:00 Intake Total 650 ml 800 ml Balance 650 ml 800 ml medications Current Medications Medications Dose Ordered Sig/Mamta Route Start Time Stop Time Status Last Admin Dose Admin Sodium Chloride 1,000 ml @ 100 mls/hr Q10H IV 10/16/24 12:15 10/18/24 15:13 100 MLS/HR Ondansetron HCl 4 mg Q4HP PRN IV 10/16/24 12:15 10/18/24 12:23 4 MG Morphine Sulfate 2 mg Q4HPRN PRN IV 10/16/24 12:15 10/17/24 17:10 2 MG Examination General Appearance: Cooperative. Well developed. Well nourished. NAD Head Exam: Normal inspection Neck Exam: Normal inspection. Non-tender. Normal alignment Pulmonary/Respiratory: Chest non-tender. Clear bilateral breath sounds Cardiovascular/Chest: Regular rate and rhythm. No murmurs. No JVD. Peripheral Pulses: 2+ Radial (R). 2+ Radial (L). 2+ Pedal (R). 2+ Pedal (L) Abdominal Exam: Normal bowel sounds. Soft. Nontender. No hepatospenomegaly. No masses Ankle Exam: Negative ankle edema Lower extremities: Negative lower extremity edema Neuro/Mental Status: A&O x4. Coherent Thoughts/Psych: Normal thought pattern. Appropriate mood and affect. Good judgement and insight Appearance: In no acute distress Skin Exam: Normal inspection. Normal color. Warm. Dry laboratory and microbiology Laboratory Tests 10/18/24 04:49 10/17/24 06:33 Test 10/18/24 04:49 Range/Units Serum Glucose 84 74-106 mg/dL Microbiology Date/Time Source Procedure Growth Status 10/17/24 12:40 Stool Stool Culture - Preliminary Resulted 10/17/24 12:40 Stool Shiga Toxin I & II - Final Resulted 10/16/24 10:56 Blood Blood Culture - Preliminary NO GROWTH AFTER 48 HOURS OF INCUBATION. Resulted Problem List/Assessment/Plan Problem List/Assessment/Plan Abdominal pain likely due to acute gastroenteritis viral/bacterial versus irritable bowel syndrome-diarrhea Ruled out SBO Plan/recommendation Dr Gross Improving nausea vomiting and diarrhea. Stool study negative to now. Continue with IV hydration and antibiotic. Once patient is medically stable for discharge advised to follow in GI Clinic for outpatient follow up. -SBO ruled out. Small bowel series normal. -continue IV antibiotic metronidazole. -reviewed CT abdomen pelvis:Mildly dilated fluid-filled small bowel loops in the mid and lower abdomen without obvious transition point -no active GI intervention needed at this point. Plan discussed with: Patient, Other (RN) CLARI FISHER RESIDENT Oct 18, 2024 17:31
[2024-10-19 01:00] VITALS: BP 92/55; PULSE 59; RESP 20; TEMP 98.2; O2SAT 98
[2024-10-19 05:00] VITALS: BP 82/47; PULSE 61; RESP 18; TEMP 98.1; O2SAT 98
[2024-10-19 06:34] LABS: Basophils # (auto) 0 10 ^3/uL (0-0.2); Basophils % (auto) 0.6 % (0.0-2.0); Eosinophils # (auto) 0.1 10 ^3/uL (0-0.8); Eosinophils % (auto) 1.6 % (0.0-7.0); Hematocrit 35.3 % (36.0-46.0); Lymphocytes # (auto) 2.1 10 ^3/uL (0.4-5.4); Lymphocytes % (auto) 38.8 % (10.0-50.0); Mean Corpuscular Hemoglobin 30.6 pg (28.0-32.0); Mean Corpuscular Volume 89.8 fL (80.0-100.0); Monocytes # (auto) 0.7 10 ^3/uL (0-1.3); Monocytes % (auto) 13.9 % (0.0-12.0); Neutrophils # (auto) 2.4 10 ^3/uL (1.6-8.6); Neutrophils % (auto) 45.1 % (37.0-80.0); Nucleated Red Blood Cells % 0.1 %; Platelet Count (auto) 250 10^3/uL (140-450); Red Blood Cells 3.92 10^6/uL (4.0-5.20); Red Cell Distribution Width 13.6 % (11.8-14.3); White Blood Cell 5.3 10^3/uL (4.4-10.8)
[2024-10-19 06:48] LABS: Alanine Aminotransferase 32 U/L (7-40); Albumin 3.9 g/dL (3.2-4.8); Anion Gap 7 (5-15); Aspartate Aminotransferase 18 U/L (13-40); Calcium 9.3 mg/dL (8.7-10.4); Carbon Dioxide 24 mmol/L (20-31); Glucose 80 mg/dL (74-106); Magnesium 1.7 mg/dL (1.6-2.6); Potassium 3.6 mmol/L (3.5-5.1); Sodium 142 mmol/L (136-145)
[2024-10-19 06:49] LABS: Bilirubin, Total 0.5 mg/dL (0.2-1.0)
[2024-10-19 06:57] LABS: Alkaline Phosphatase 41 U/L (46-116); BUN/Creatinine Ratio 7.1 (10.0-20.0); Blood Urea Nitrogen < 5 mg/dL (9-23); Chloride 111 mmol/L (98-107); Total Protein 5.5 g/dL (5.7-8.2)
[2024-10-19 08:00] VITALS: RESP 18; O2SAT 98
[2024-10-19 08:50] VITALS: BP 94/47; PULSE 50; RESP 16; TEMP 97.8; O2SAT 99
--- NOTE | 2024-10-19 11:06 | DVHDS2 ---
Discharge Summary Date of Admission Oct 16, 2024 at 12:13 Date of Discharge: Oct 19, 2024 Labs/Diagnostic Data: Laboratory Results Test 10/19/24 05:44 10/18/24 10:16 10/18/24 04:49 10/16/24 10:56 White Blood Count 5.3 10^3/uL (4.4-10.8) Red Blood Count 3.92 10^6/uL (4.0-5.20) Hemoglobin 12.0 g/dL (12.2-16.2) Hematocrit 35.3 % (36.0-46.0) Mean Corpuscular Volume 89.8 fL (80.0-100.0) Mean Corpuscular Hemoglobin 30.6 pg (28.0-32.0) Mean Corpuscular Hemoglobin Concent 34.0 g/dL (32.0-36.0) Red Cell Distribution Width 13.6 % (11.8-14.3) Platelet Count 250 10^3/uL (140-450) Mean Platelet Volume 8.4 fL (6.9-10.8) Neutrophils (%) (Auto) 45.1 % (37.0-80.0) Lymphocytes (%) (Auto) 38.8 % (10.0-50.0) Monocytes (%) (Auto) 13.9 % (0.0-12.0) Eosinophils (%) (Auto) 1.6 % (0.0-7.0) Basophils (%) (Auto) 0.6 % (0.0-2.0) Neutrophils # (Auto) 2.4 10 ^3/uL (1.6-8.6) Lymphocytes # (Auto) 2.1 10 ^3/uL (0.4-5.4) Monocytes # (Auto) 0.7 10 ^3/uL (0-1.3) Eosinophils # (Auto) 0.1 10 ^3/uL (0-0.8) Basophils # (Auto) 0 10 ^3/uL (0-0.2) Nucleated Red Blood Cells 0.1 % Sodium Level 142 mmol/L (136-145) Potassium Level 3.6 mmol/L (3.5-5.1) Chloride Level 111 mmol/L (98-107) Carbon Dioxide Level 24 mmol/L (20-31) Anion Gap 7 (5-15) Blood Urea Nitrogen < 5 mg/dL (9-23) Creatinine 0.70 mg/dL (0.550-1.02) Glomerular Filtration Rate Calc 125 mL/min (>90) BUN/Creatinine Ratio 7.1 (10.0-20.0) Serum Glucose 80 mg/dL (74-106) Calcium Level 9.3 mg/dL (8.7-10.4) Magnesium Level 1.7 mg/dL (1.6-2.6) Total Bilirubin 0.5 mg/dL (0.2-1.0) Aspartate Amino Transferase (AST) 18 U/L (13-40) Alanine Aminotransferase (ALT) 32 U/L (7-40) Alkaline Phosphatase 41 U/L (46-116) Total Protein 5.5 g/dL (5.7-8.2) Albumin 3.9 g/dL (3.2-4.8) Stool for White Cells None seen C-Reactive Protein High Sensitivity 1.34 mg/dL (<1.0) Lactic Acid Level 1.2 mmol/L (0.4-2.0) Test 10/16/24 09:00 10/16/24 05:30 Urine Color Light-yellow (Yellow) Urine Clarity Clear (Clear) Urine pH 5.0 (5.0-9.0) Urine Specific [place] 1.019 (1.001-1.035) Urine Protein Negative (Negative) Urine Ketones 1+ (Negative) Urine Blood Negative /uL (Negative) Urine Nitrite Negative (Negative) Urine Bilirubin Negative (Negative) Urine Urobilinogen Normal mg/dL (Negative) Urine Leukocyte Esterase Negative /uL (Negative) Urine RBC <1 /hpf (0 - 4) Urine Microscopic WBC 1 /HPF (0-5) Urine Squamous Epithelial Cells Few /hpf (<5) Urine Bacteria None seen /hpf (None Seen) Urine Mucus Few (None Seen) Urine Glucose Normal mg/dL (Normal) Lipase 27 U/L (12-53) Beta HCG, Quantitative 0.3 mIU/mL (1.5-4.2) Hepatitis B Surface Antigen Negative (Negative) Hepatitis C Antibody Negative (Negative) Other Laboratory Tests 10/19/24 05:44 Brief Hx & Hospital Course: Final diagnoses: Acute gastroenteritis Hypokalemia Abdominal pain due to gastroenteritis 24-year-old female who was admitted for abdominal pain and nausea and vomiting and diarrhea She was suspected of having an ileus on CT scan of the abdomen however a bowel series was normal She started having bowel movements after the bowel series but then she was tolerating her diet okay Potassium was replaced, it is 3.6 today Overall she is doing better and therefore she will be discharged home today Advance diet to regular as tolerated Follow up with her PCP as soon as possible No need for any medications Condition at Discharge: Stable Final Diagnosis/Problems List Acute gastroenteritis Hypokalemia Abdominal pain due to gastroenteritis Discharge Disposition: Home SNF Discharge Will this Physician continue t: No Discharge Instruct/Medications Diet: Regular Activity: No Restrictions, As Tolerated Follow Up/Referral: PCP as soon as possible Medications: No new medications Discharge Statement: "Patient was advised to return to the ER or call 911 if any headaches, dizziness, shortness of breath, chest pain, abdominal pain, bleeding, fevers, or worsening of medical condition. Patient was counseled about treatment plan, medications, possible side effects, patientverbalized understanding. All questions were answered to the best of my ability. This discharge took greater then 30 minutes in planning, reviewing documentation, counseling the patient, and discussing with other team members." ASSESSMENT ASSESSMENT Assessment Acute gastroenteritis Hypokalemia Abdominal pain due to gastroenteritis Date of Service: Oct 19, 2024 Billing Provider: CHRIS ELDER MD Common Visit Codes: [id number] DISCH DAY >30min CHRIS ELDER MD Oct 19, 2024 11:06
[2024-10-19 13:00] VITALS: BP 99/47; PULSE 54; RESP 18; TEMP 97.8; O2SAT 95
--- NOTE | 2024-10-19 14:34 | DVHPN2 ---
Progress Note Date Seen: Oct 19, 2024 Resident Creating Document: DUDLEY MIRANDA RESIDENT Medical Necessity Reason Pt with a Central, PICC or Fol: No Subjective Review of Systems Patient seen and examined at bedside. She is alert oriented x3. Mentioned significantly reduced bowel movement and 4 bowel movement in last 24 hours which was semisolid in nature. No other active complaint . Objective vital signs Vital Sign Date Time Temp Pulse Resp B/P (MAP) Pulse Ox O2 Delivery O2 Flow Rate FiO2 10/19/24 13:00 97.8 54 18 99/47 (64) 95 97.8 10/19/24 08:00 Room Air* 0 21 Total Intake and Output 10/18/24 10/18/24 10/19/24 15:00 23:00 07:00 Intake Total 2275 ml 820 ml Balance 2275 ml 820 ml medications Current Medications Medications Dose Ordered Sig/Mamta Route Start Time Stop Time Status Last Admin Dose Admin Sodium Chloride 1,000 ml @ 100 mls/hr Q10H IV 10/16/24 12:15 10/19/24 06:17 100 MLS/HR Ondansetron HCl 4 mg Q4HP PRN IV 10/16/24 12:15 10/18/24 20:53 4 MG Morphine Sulfate 2 mg Q4HPRN PRN IV 10/16/24 12:15 10/19/24 02:45 2 MG Examination Physical examination: General Appearance: Alert, Oriented X3, Cooperative, No acute distress HEENT: Atraumatic, PERRLA, EOMI, Mucous membrane moist/pink Respiratory: Clear to auscultation, Normal air movement Cardiovascular: Regular rate, Normal S1, Normal S2, No murmurs, no chest wall tenderness Abdominal: Normal bowel sounds, Soft, No tenderness, No hepatospenomegaly, No masses Extremities: No clubbing, No cyanosis, No edema, Normal pulses, No tenderness/swelling Skin: No rashes, No breakdown, No significant lesion Neuro: Normal gait, Normal speech, Strength at 5/5 X4 ext, Normal tone, Sensation intact, Cranial nerves 3-12 NL, Reflexes 2+ Psych/Mental Status: Mental status NL, Mood NL laboratory and microbiology Laboratory Tests 10/19/24 05:44 Test 10/19/24 05:44 Range/Units Serum Glucose 80 74-106 mg/dL Microbiology Date/Time Source Procedure Growth Status 10/17/24 12:40 Stool Stool Culture - Final Complete 10/17/24 12:40 Stool Shiga Toxin I & II - Final Complete 10/16/24 10:56 Blood Blood Culture - Preliminary NO GROWTH AFTER 72 HOURS OF INCUBATION. Resulted Labs and/or images reviewed: Labs reviewed by me, Image(s) reviewed by me Problem List/Assessment/Plan Problem List/Assessment/Plan Assessment : Abdominal pain and diarrhoea likely due to acute gastroenteritis versus irritable bowel syndrome-diarrhea Ruled out SBO Plan/recommendation Improving nausea vomiting and diarrhea. Stool study negative . Continue with IV hydration and antibiotic. -SBO ruled out. Small bowel series normal. -continue IV antibiotic metronidazole. -reviewed CT abdomen pelvis:Mildly dilated fluid-filled small bowel loops in the mid and lower abdomen without obvious transition point -no active GI intervention needed at this point. - Patient is stable for discharge from GI standpoint. - Recommended outpatient follow up with GI clinic after discharge. Plan discussed with Dr. Gross Plan discussed with: Patient, Other DUDLEY MIRANDA RESIDENT Oct 19, 2024 14:34
[2024-10-21 13:07] LABS: Saccharomyces cerevisiae IgA <20.0 Units (0.0-24.9)
== END 2024-10-19 14:30 | disposition home or self-care (01) | DRG 249 ==
LOC: ER 05:14 → OVERFLOW 12:13 → WEST WING 23:29
PROVIDERS: ADMIT Nurse Practitioner Family; ATTEND Internal Medicine Geriatric Medicine
DX: A08.4 Viral intestinal infection, unspecified (principal); R65.10 Systemic inflammatory response syndrome (SIRS) of non-infectious origin without acute organ dysfunction; E87.6 Hypokalemia; F84.0 Autistic disorder; R21 Rash and other nonspecific skin eruption; Z79.1 Long term (current) use of non-steroidal anti-inflammatories (NSAID); Z79.899 Other long term (current) drug therapy; Z88.8 Allergy status to other drugs, medicaments and biological substances
CPT/HCPCS: 36415; 74176; 74177; 74250; 80053; 81001; 83605; 83690; 83735; 84702; 85025; 85048; 86141; 86256; 86671; 86803; 87040; 87045; 87177; 87340; 87427; 96361; 96365; 96375; G0378; J0692; J2405; J3480; J3490